=== PATIENT | female | born 1940 | race Caucasian/White ===

== ENCOUNTER → 2016-07-08 | Outpatient (CLI) | payer MEDICARE, BC ==
--- NOTE | 2016-07-08 12:12 | US ---
EXAMINATION TYPE: US kidneys/renal and bladder DATE OF EXAM: 07/08/2016 9:52 AM COMPARISON: on PACS CLINICAL HISTORY: R31.9 Hematuria. EXAM MEASUREMENTS: Right Kidney: 10.4 x 3.6 x 4.7 cm Left Kidney: 10.2 x 3.9 x 4.8 cm TECHNOLOGIST IMPRESSION: Right Kidney: No hydronephrosis or masses seen Left Kidney: cyst measuring 1.4 x 1.2 x 1.4 cm midpole Bladder: not well distended No discrete solid areas are evident. There is a cyst on the left kidney mid to inferior cortical medu llary junction. Urinary bladder appears incompletely distended. IMPRESSION: 1. Mid to inferior pole left renal cyst
--- NOTE | 2016-07-10 08:26 | MM ---
Reason for exam: screening (asymptomatic). Last mammogram was performed 1 year ago. History: Patient is postmenopausal. Took estrogen for 15 years beginning at age 50. Took progesterone for 15 years beginning at age 50. Physical Findings: A clinical breast exam by your physician is recommended on an annual basis and results should be correlated with mammographic findings. MG Screening Mammo w CAD Bilateral CC and MLO view(s) were taken. Prior study comparison: June 23, 2015, bilateral MG screening mammo w CAD. August 11, 2012, bilateral digital screening mammo w/CAD. February 27, 2010, bilateral digital screening mammogram. There are scattered fibroglandular densities. There is chronic nodularity in the left breast. Bilateral benign secretory calcifications are present. ASSESSMENT: Benign, BI-RAD 2 RECOMMENDATION: Routine screening mammogram of both breasts in 1 year.
--- NOTE | 2016-07-10 11:56 | BD ---
EXAMINATION TYPE: MG DEXA axial skeleton. DATE OF EXAM: 07/08/2016 10:50 AM COMPARISON: NONE CLINICAL HISTORY: Height: 60 Weight: 159.8 FRAX RISK QUESTIONS: Alcohol (3 or more units per day): YES Family History (Parent hip fracture): NO Glucocorticoids (More than 3mos): NO (Ex: prednisone, prednisolone, methylprednisolone, dexamethasone, and hydrocortisone). History of Fracture in Adulthood: NO Secondary Osteoporosis: 1. Type 1 Diabetes: NO 2. Hyperthyroidism: NO 3. Menopause before 45: NO 4. Malnutrition: NO 5. Chronic liver disease: NO Rheumatoid Arthritis: NO Current Tobacco Use: NO RISK FACTORS HISTORY OF: Hip Fracture (Right/Left): NO Spine Fracture: NO History of Wrist Fracture: NO Surgery to Spine/Hip(right/left)/Wrist (right/left): NO Family History of Osteoporosis: NO Active: YES Diet low in dairy products/other sources of calcium: NO Postmenopausal woman: AGE 50 Lost more than 2 inches in height since high school: JUST 2 INCHES Frequent falls: NO Adrenal Insufficiency: NO MEDICATIONS: OMEPRAZOLE, CALCIUM, CIPRO, DONEPEZIL, NAMENDA, RALOXIFEM, ROSUVASTATIN, SERTRALIN Additional History: EXAM MEASUREMENTS: Bone mineral densitometry was performed using the [employer] System. Bone mineral density as measured about the Lumbar spine is: ----- L1-L4(G/cm2): 0.923 T Score Values are as follows: ----- L2: -3.1 ----- L3: -1.7 ----- L4: -2.0 ----- L1-L4: -2.1 Bone mineral density has: DECREASED -0.3 % since study of: 03.19.2013 Bone mineral density about the R hip (g/cm2): 0.761 Bone mineral density about the L hip (g/cm2): 0.750 T Score values are as follows: -----R Neck: -2.0 -----L Neck: -2.1 -----R Intertrochanter: -1.1 -----L Intertrochanter: -1.0 Bone mineral density has: INCREASED 1.9 % since study of: 03.19.2013 IMPRESSION: Osteopenia about the lumbar spine bilateral hips and as such there is increased fracture risk. NOTE: T-SCORE=SD OF THE YOUNG ADULT MEAN.
== END | disposition home or self-care (01) ==
LOC: RADMAMWWP 09:45
PROVIDERS: ATTEND Family Medicine
DX: Z12.31 Encounter for screening mammogram for malignant neoplasm of breast (principal); M85.80 Other specified disorders of bone density and structure, unspecified site; N28.1 Cyst of kidney, acquired; Z78.0 Asymptomatic menopausal state
CPT/HCPCS: 77080; 76770; G0202

== ENCOUNTER → 2016-09-26 | Outpatient (CLI) | payer MEDICARE, BC ==
--- NOTE | 2016-09-26 14:58 | US ---
EXAMINATION TYPE: US pelvis complete transvag DATE OF EXAM: 09/26/2016 2:38 PM COMPARISON: CT, renal US in PACS CLINICAL HISTORY: R10.2 Pelvic Pain. Pt states LLQ pain, gross hematuria TECHNIQUE: Transvaginal (TV) and Transabdominal (TA) Date of LMP: Age 50's EXAM MEASUREMENTS: Uterus: 5.2 x 2.8 x 3.2 cm Endometrial Stripe: 1.0 cm Left Ovary: 1.4 x 1.0 x 0.8 cm 1. Uterus: Anteverted Heterogeneous, Nabothian cyst in cervix 2. Endometrium: Thickened with fluid in canal 3. Right Ovary: Obscured by overlying bowel gas 4. Left Ovary: wnl 5. Bilateral Adnexa: wnl 6. Posterior cul-de-sac: wnl Incidental finding, vascular bladder mass= 2.3 cm IMPRESSION: 1. Vascular bladder mass. Urology consult is recommended. 2. Endometrial thickening with fluid within the endometrial canal.
== END | disposition home or self-care (01) ==
LOC: RADUSWWP 14:10
PROVIDERS: ATTEND Family Medicine
DX: N32.89 Other specified disorders of bladder (principal); R93.8 Abnormal findings on diagnostic imaging of other specified body structures
CPT/HCPCS: 76830; 76856

== ENCOUNTER → 2016-12-16 | Outpatient (CLI) | payer MEDICARE, BC ==
[2016-12-16 16:39] LABS: Blood Urea Nitrogen 10 mg/dL (7-17); Non-African American GFR(MDRD) >60 (>60 ml/min/1.73 sqM)
--- NOTE | 2016-12-16 17:25 | CT ---
EXAMINATION TYPE: CT urogram wo/w con DATE OF EXAM: 12/16/2016 HISTORY: Frequent urination. Question bladder cancer. CT DLP: 1827.90mGycm Automated Exposure Control for Dose Reduction was Utilized. CONTRAST: CT scan of the abdomen and pelvis is performed with IV Contrast, patient injected with 100 mL of Omni paque 300. COMPARISON: 03/23/2013 FINDINGS: Lung bases are clear of consolidation. There is hiatal hernia. There is no pleural effusion. Liver sh ows no focal defect. Spleen and pancreas appear normal. There are clips from cholecystectomy. There is no adrenal mass. Kidneys show satisfactory contrast opacification. There is no hydronephrosi s. Ureters are not dilated. There are multiple diverticula in the sigmoid colon. Bladder distends smo othly. There is no pelvic mass. Noncontrast images show no renal calculus. Appendix is not seen. Ther e is no sign of appendicitis. There is a low-density rounded 13 mm area in the interpolar left kidney consistent with a intermediate density cortical cyst. This appears unchanged compared to old CT scan of 03/23/2013. I see no bony destructive process. IMPRESSION: Stable left renal cortical cyst. Moderate left-sided colonic diverticulosis without sign of diverticulitis. There is insufficient contrast in the bladder to confirm or exclude a bladder mass .
== END | disposition home or self-care (01) ==
LOC: RADCTMAIN 16:10
PROVIDERS: ATTEND Urology
DX: N28.1 Cyst of kidney, acquired (principal); K57.30 Diverticulosis of large intestine without perforation or abscess without bleeding; C67.9 Malignant neoplasm of bladder, unspecified
CPT/HCPCS: 82565; 84520; 74178; 36415; 74400; Q9967

== ENCOUNTER 2017-07-22 20:51 | Emergency (ER) | payer MEDICARE, BC ==
[2017-07-22] MEDS ORDERED: MORPHINE SULFATE 2 MG/ML SYRINGE IVP ONE (21:06)
[2017-07-22] MEDS ORDERED: FAMOTIDINE 20 MG/2 ML VIAL IV STA (21:06)
[2017-07-22] MEDS ORDERED: ASPIRIN 81 MG PO STA (21:06)
--- NOTE | 2017-07-22 21:18 | ED ---
Chest Pain HPI - General Chief Complaint: Chest Pain Stated Complaint: Chest Pain Time Seen by Provider: 07/22/17 20:56 Source: patient Mode of arrival: ambulatory Limitations: no limitations - History of Present Illness Initial Comments: This is a 76-year-old female who presents emergency department for chest pain and coughing up phlegm. She states it's been going on for the last 3 days. She states the pain has been constant in the center of her chest. She describes it as nonradiating. Nothing seems to make it better or worse. She states that it is very painful. She states that she's also been coughing up some clear and frothy phlegm. She states that she went to dinner tonight and had a couple of bites and the pain seemed to be getting worse so she decided to come home and then come emergency department. The patient does not have a history of heart disease. She does have a history of bladder cancer and has completed radiation and chemotherapy in the past. She states that she does not have a history of PE or DVT. The pain is not pleuritic any way. She is not short of breath. She has no abdominal pain or nausea. No diarrhea. No lightheadedness or syncope. No other complaints. - Related Data Home Medications Medication Instructions Recorded Confirmed Omeprazole 20 mg PO DAILY 09/21/15 07/22/17 Raloxifene [Evista] 60 mg PO DAILY 09/21/15 07/22/17 Rosuvastatin Calcium [Crestor] 10 mg PO DAILY 09/21/15 07/22/17 Sertraline [Zoloft] 100 mg PO DAILY 09/21/15 07/22/17 Donepezil [Aricept] 10 mg PO DAILY 07/22/17 07/22/17 Previous Rx's Medication Instructions Recorded Omeprazole [PriLOSEC] 40 mg PO DAILY #30 capsule. 07/22/17 Ondansetron Odt [Zofran Odt] 4 mg PO Q8HR PRN #6 tab 07/22/17 Allergies Allergy/AdvReac Type Severity Reaction Status Date / Time No Known Allergies Allergy Verified 07/22/17 21:40 Review of Systems ROS Statement: Those systems with pertinent positive or pertinent negative responses have been documented in the HPI. ROS Other: All systems not noted in ROS Statement are negative. EKG Findings - EKG Comments: EKG Findings:: EKG showing normal sinus rhythm with a rate of 74. No abnormal ST segment changes or T-wave inversions. QTC is 460. Other intervals normal. No ectopy. Past Medical History Past Medical History: Hyperlipidemia History of Any Multi-Drug Resistant Organisms: None Reported Past Surgical History: Appendectomy, Bowel Resection, Joint Replacement Past Psychological History: Depression Smoking Status: Never smoker Past Alcohol Use History: Daily Past Drug Use History: None Reported General Exam - General Exam Comments Initial Comments: Constitutional: Awake alert appears mildly uncomfortable and is constantly spitting into a basin Head: Normocephalic atraumatic Eyes: no conjunctival injection No scleral icterus EOMI Neck: No JVD Supple Heart: Regular rate rhythm normal S1-S2 no murmurs Lungs: Clear to auscultation bilaterally No wheezing No rales Abdomen: Soft nondistended nontender Extremities: Non edematous DP pulses intact Radial pulses intact Neuro: A&Ox3 No focal neurologic deficits Psych: Appropriate mood and affect Limitations: no limitations Course Vital Signs 07/22/17 20:56 Temperature 97.7 F Pulse Rate 96 Respiratory 25 H Rate Blood Pressure 200/84 O2 Sat by Pulse 98 Oximetry Chest Pain MDM - MDM Is a 76-year-old female who presents emergency department for chest pain. She states that his been going on constantly for 3 days. Troponin was negative. D- dimer is negative. Patient was given a GI cocktail and Zofran and complete resolution of her symptoms. She was able to tolerate by mouth. She stated that she wanted to go home. Patient has discontinued her Prilosec and needs to be restarted. I told her also get [id number] antacids. I gave her Zofran for home that she can use as needed. Needs to have close follow-up with her primary doctor. She can return the emergency room she has worsening or recurring symptoms or all questions were answered. Disposition Clinical Impression: Chest pain, GERD (gastroesophageal reflux disease) Disposition: HOME SELF-CARE Condition: Stable Instructions: Chest Pain (ED), Gastroesophageal Reflux Disease (ED) Prescriptions: Omeprazole [PriLOSEC] 40 mg PO DAILY #30 capsule. Ondansetron Odt [Zofran Odt] 4 mg PO Q8HR PRN #6 tab PRN Reason: Nausea Referrals: Bruno Houston MD [Primary Care Provider] - 1-2 days
[2017-07-22 21:19] LABS: Basophils % (A) 0 %; Eosinophils # (A) 0.1 k/uL (0-0.7); Eosinophils % (A) 2 %; HCT 40.1 % (34.0-46.0); HGB 12.5 gm/dL (11.4-16.0); Hypochromasia Slight; Lymphocytes # (A) 0.9 k/uL (1.0-4.8); Lymphocytes % (A) 13 %; MCHC 31.1 g/dL (31.0-37.0); MCV 96.7 fL (80.0-100.0); Mean Platelet Volume 7.2; Monocytes # (A) 0.4 k/uL (0-1.0); Monocytes % (A) 5 %; Neutrophils # (A) 5.3 k/uL (1.3-7.7); Neutrophils % (A) 77 %; Platelet Count 207 k/uL (150-450); RBC 4.15 m/uL (3.80-5.40); RDW 15.1 % (11.5-15.5); WBC 6.8 k/uL (3.8-10.6)
[2017-07-22] MEDS ORDERED: MORPHINE SULFATE 2 MG/ML SYRINGE IVP STA (21:19)
[2017-07-22 21:33] LABS: D-Dimer 0.32 mg/L FEU (<0.60); INR 1.2 (<1.2); Partial Thromboplastin Time 22.6 sec (22.0-30.0); Prothrombin Time 11.5 sec (9.0-12.0)
[2017-07-22] MEDS ORDERED: MORPHINE SULFATE 2 MG/ML SYRINGE IVP PRN (21:34)
[2017-07-22 21:39] LABS: ALT 35 U/L (9-52); AST 45 U/L (14-36); Albumin 4.6 g/dL (3.5-5.0); Alkaline Phosphatase 50 U/L (38-126); Anion Gap 14 mmol/L; Blood Urea Nitrogen 10 mg/dL (7-17); Carbon Dioxide 24 mmol/L (22-30); Chloride 102 mmol/L (98-107); Glucose 115 mg/dL (74-99); Lipase 199 U/L (23-300); Magnesium 1.8 mg/dL (1.6-2.3); Potassium 3.7 mmol/L (3.5-5.1); Sodium 140 mmol/L (137-145); Total Bilirubin 0.5 mg/dL (0.2-1.3); Total Protein 7.6 g/dL (6.3-8.2)
[2017-07-22 21:56] LABS: Creatine Kinase MB 0.4 ng/mL (0.0-2.4); Troponin I <0.012 ng/mL (0.000-0.034)
[2017-07-22] MEDS ORDERED: MAG HYDROX/AL HYDROX/SIMETH 30 ML, HYOSCYAMINE ELIXIR 10 ML, CIMETIDINE HCL 300 MG, LID... PO STA ×4 (22:12)
[2017-07-22] MEDS ORDERED: ONDANSETRON 4 MG/2 ML VIAL IVP STA (22:12)
--- NOTE | 2017-07-22 22:29 | XR ---
EXAMINATION TYPE: XR chest 2V DATE OF EXAM: 07/22/2017 COMPARISON: 11/24/2009 HISTORY: Chest pain and cough TECHNIQUE: Frontal and lateral views of the chest are obtained. FINDINGS: There is no heart failure nor confluent pneumonic infiltrate. There is right central venou s catheter with the tip over the right atrium. Costophrenic angles are clear. There are chest leads. Thoracic aorta is atheromatous. Bony thorax is intact. IMPRESSION: No active cardiopulmonary disease. No adverse change..
[2017-07-22 23:13] VITALS: BP 164/70; PULSE 71; RESP 18; TEMP 98
== END 2017-07-22 23:10 | disposition home or self-care (01) ==
LOC: EC 20:51
DX: K21.9 Gastro-esophageal reflux disease without esophagitis (principal); E78.5 Hyperlipidemia, unspecified; F32.9 Major depressive disorder, single episode, unspecified; Z90.49 Acquired absence of other specified parts of digestive tract; Z79.899 Other long term (current) drug therapy
CPT/HCPCS: 36415; 93005; 85379; 83880; 80053; 82553; 83690; 83735; 84484; 85025; 85610; 85730; 71046; 99285; 96374; 96375 ×2; J2405; J2270

== ENCOUNTER 2022-09-16 08:42 | Emergency (ER) | payer MEDICARE, BC ==
[2022-09-16 08:51] VITALS: TEMP 98.4
--- NOTE | 2022-09-16 09:36 | ED ---
Fall HPI - General Chief Complaint: Extremity Injury, Lower Stated Complaint: fall Time Seen by Provider: 09/16/22 08:45 Source: EMS, RN notes reviewed Mode of arrival: EMS Limitations: altered mental status - History of Present Illness Initial Comments: This is an 82-year-old female who presents to the emergency department for a fall. [facility] Nursing staff states that she essentially rolled out of bed and fell, injuring her right knee. She was initially complaining of right knee pain on arrival, however that has since resolved. She did not hit her head or have any loss of consciousness. Patient not taking any blood thinners. She does have dementia and is a poor historian. Additionally, patient noted to have low oxygen saturation on arrival and according to her daughter she had been coughing over the last couple of days. Denies any fevers, chills, sore throat, chest pain, palpitations, abdominal pain, nausea, vomiting, diarrhea, back pain, or headaches. MD Complaint: fall Fall Witnessed: yes, by living facility staff Place Fall Occurred: assisted/SNF Location - Extremities: Right: Knee - Related Data Home Medications Medication Instructions Recorded Confirmed Omeprazole 20 mg PO DAILY 09/21/15 07/22/17 Raloxifene [Evista] 60 mg PO DAILY 09/21/15 07/22/17 Rosuvastatin Calcium [Crestor] 10 mg PO DAILY 09/21/15 07/22/17 Sertraline [Zoloft] 100 mg PO DAILY 09/21/15 07/22/17 Donepezil [Aricept] 10 mg PO DAILY 07/22/17 07/22/17 Previous Rx's Medication Instructions Recorded Omeprazole [PriLOSEC] 40 mg PO DAILY #30 capsule. 07/22/17 Ondansetron Odt [Zofran Odt] 4 mg PO Q8HR PRN #6 tab 07/22/17 Albuterol Sulfate [Albuterol 1 puff PO Q4-6H PRN #8.5 gm 09/16/22 Sulfate Hfa] Azithromycin [Zithromax] 250 mg PO DIRECTED #6 tab 09/16/22 Molnupiravir [Lagevrio (Eua)] 800 mg PO BID 5 Days #40 cap 09/16/22 Allergies Allergy/AdvReac Type Severity Reaction Status Date / Time No Known Allergies Allergy Verified 09/16/22 08:51 Review of Systems ROS Statement: Those systems with pertinent positive or pertinent negative responses have been documented in the HPI. ROS Other: All systems not noted in ROS Statement are negative. Past Medical History Past Medical History: Hyperlipidemia History of Any Multi-Drug Resistant Organisms: None Reported Past Surgical History: Appendectomy, Bowel Resection, Joint Replacement Past Psychological History: Depression Smoking Status: Unknown if ever smoked Past Alcohol Use History: Daily Past Drug Use History: None Reported General Exam Limitations: altered mental status General appearance: alert, in no apparent distress Head exam: Present: atraumatic, normocephalic, normal inspection Respiratory exam: Present: wheezes Cardiovascular Exam: Present: regular rate, normal rhythm, normal heart sounds. Absent: systolic murmur, diastolic murmur, rubs, gallop, clicks Extremities exam: Present: other (No deformities, tenderness, swelling, or ecchymosis over the right patella.) Neurological exam: Present: alert, other (Oriented 1) Psychiatric exam: Present: normal affect, normal mood Skin exam: Present: warm, dry, intact, normal color. Absent: rash Course Vital Signs 09/16/22 09/16/22 09/16/22 08:43 09:01 10:32 Temperature 98.4 F Pulse Rate 72 73 Respiratory 16 18 Rate Blood Pressure 139/64 124/70 O2 Sat by Pulse 92 L 89 L 94 L Oximetry Medical Decision Making - Medical Decision Making This is an 82-year-old female who presents to the emergency department for right knee pain after a fall and incidentally noted low oxygen saturation. Was pt. sent in by a medical professional or institution? @ -No Did you speak to anyone other than the patient for history? @ -Her daughter Did you review nursing and triage notes? @ -Yes, and I agree, it is accurate with regards to the patient's symptoms. Were old charts reviewed? @ -No Differential Diagnosis? @ -Differential Knee Injury: Fracture, dislocation, sprain, contusion, meniscus injury, ACL/LCL/MCL/PCL injury, this is not meant to be an all-inclusive list. X-rays interpreted by me (1pt min.)? @ -Chest x-ray obtained. My interpretation identifies a possible infiltrate in the left lower lobe. X-ray of the right knee obtained as well. My interpretation identifies no acute fractures or dislocations. What testing was considered but not performed? (CT, X-rays, U/S, labs)? Why? @ -None What meds were considered but not given? Why? @ -None Did you discuss the management of the patient with other professionals? @ -No Did you reconcile home meds? @ -No Was smoking cessation discussed for >3mins.? @ -No Was critical care preformed (if so, how long)? @ -No Were there social determinants of health that impacted care today? How? (Homelessness, low income, unemployed, alcoholism, drug addiction, transportation, low edu. Level, literacy, decrease access to med. care, alf, rehab)? @ -No Was there de-escalation of care discussed even if they declined? (Discuss DNR or withdrawal of care, Hospice)? @ -No What co-morbidities impacted this encounter? (DM, HTN, Smoking, COPD, CAD, Cancer, CVA, Hep., AIDS, mental health diagnosis, sleep apnea, morbid obesity)? @ -Dementia Was patient admitted / discharged? @ -Discharged. X-ray of the right knee obtained revealing no acute findings. Patient noted to have low oxygen saturation on room air at approximately 89%. She was subsequently put on a nasal cannula. Chest x-ray obtained revealing left lower lobe infiltrate versus atelectasis. Patient also positive for COVID- 19. The nasal cannula was removed and the patient sustained oxygen saturation of 94-99% on room air. She is also in no distress. We spoke with the assisted, who was agreeable to take the patient back with COVID. They requested she be started on antiviral medication. Given that we have no recent kidney function, rx for Lagevrio provided with dosing instructions reviewed. Prescription for Z-Bang provided as well given the possible associated pneumonia. I did also send in an albuterol inhaler in case she develops any coughing or difficulty breathing. Advised ibuprofen and Tylenol as needed for any discomfort to the knee or fevers. She is also instructed to quarantine for 5 days and practice extra precautions for an additional 5 days, including always wearing a mask around others and avoiding travel. Undiagnosed new problem with uncertain prognosis? @ -None Drug Therapy requiring intensive monitoring for toxicity (Heparin, Nitro, Insulin, Cardizem)? @ -None Were any procedures done? @ -None Diagnosis/symptom? @ -Fall, right knee contusion, COVID-19 Acute, or Chronic, or Acute on Chronic? @ -Acute Uncomplicated (without systemic symptoms) or Complicated (systemic symptoms)? @ -Uncomplicated Side effects of treatment? @ -None Exacerbation, Progression, or Severe Exacerbation] @ -Not applicable Poses a threat to life or bodily function? @ -No Return precautions reviewed in depth, the patient is instructed to return to the emergency department with any new, worsening, or concerning symptoms. Patient verbalized understanding. This case was discussed in detail with the attending ED physician, Dr. Yoo. Presentation, findings, and treatment plan discussed in detail as well. - Lab Data Lab Results 09/16/22 09/16/22 Range/Units 09:26 09:26 Coronavirus (PCR) Detected A (Not Detectd) Influenza Type A RNA Not Detected (Not Detectd) Influenza Type B (PCR) Not Detected (Not Detectd) - Radiology Data Radiology results: report reviewed, image reviewed Disposition Clinical Impression: COVID-19, Fall, Contusion of right knee Disposition: HOME SELF-CARE Instructions (If sedation given, give patient instructions): Fall Prevention for Older Adults (ED), COVID-19 (Coronavirus Disease 2019) (ED) Additional Instructions: Return to the emergency department with any new, worsening, or concerning symptoms. Take the antibiotic as prescribed for 5 days. Take the antiviral medicine as prescribed for 5 days as well. She can use the albuterol inhaler up to every 4-6 hours as needed for coughing and difficulty breathing. You will need to quarantine for 5 days and practice extra precautions for an additional 5 days, including always wearing a mask around others and avoiding travel. Make sure that you otherwise remain well-hydrated and continue symptomatic management as needed. Prescriptions: Albuterol Sulfate [Albuterol Sulfate Hfa] 1 puff PO Q4-6H PRN #8.5 gm PRN Reason: Shortness Of Breath Molnupiravir [Lagevrio (Eua)] 800 mg PO BID 5 Days #40 cap Azithromycin [Zithromax] 250 mg PO DIRECTED #6 tab Is patient prescribed a controlled substance at d/c from ED?: No Referrals: Nonstaff,Physician [Primary Care Provider] - 1-2 days
--- NOTE | 2022-09-16 09:48 | XR ---
EXAMINATION TYPE: XR chest 2V DATE OF EXAM: 09/16/2022 COMPARISON: 07/22/2017 TECHNIQUE: PA and lateral views submitted. HISTORY: Shortness of breath FINDINGS: The lungs are clear and there is no pneumothorax, pleural effusion, or focal pneumonia. Heart size normal and no overt failure. Osseous structures demonstrate hypertrophic and degenerative changes of the spine. Atherosclerotic change aorta. Hypertrophic and degenerative change. Hyperinflation suggest s COPD. Surgical clips in the abdomen. Surgical clips in the abdomen. IMPRESSION: 1. Left lower lobe infiltrate or atelectasis correlate clinically..
--- NOTE | 2022-09-16 09:52 | XR ---
EXAMINATION TYPE: XR knee complete RT DATE OF EXAM: 09/16/2022 COMPARISON: NONE HISTORY: Pain TECHNIQUE: Three views are submitted. FINDINGS: Severe patellofemoral joint arthropathy. There is [id number] medial compartment arthropathy. Di ffuse osteopenia.. Osseous structures are intact. No acute fracture seen. IMPRESSION: 1. No acute fracture or dislocation.
[2022-09-16 10:34] VITALS: BP 124/70; PULSE 73; RESP 18
== END 2022-09-16 11:15 | disposition home or self-care (01) ==
LOC: EC 08:42
DX: U07.1 COVID-19 (principal); S80.01XA Contusion of right knee, initial encounter; E78.5 Hyperlipidemia, unspecified; F32.A Depression, unspecified; Z90.89 Acquired absence of other organs; Z79.899 Other long term (current) drug therapy; W06.XXXA Fall from bed, initial encounter; Y92.129 Unspecified place in nursing home as the place of occurrence of the external cause
CPT/HCPCS: 71046; 87502; 87635; 99284